=== PATIENT | male | born 1940 | race Caucasian/White ===

== ENCOUNTER 2017-01-31 05:44 | Inpatient (IN) | payer OTHER ==
[2017-01-20 10:31] LABS: WBC (NOT ORDERED) (RFLEX) 0 (0-5)
[2017-01-20 10:47] LABS: ASCORBIC ACID (UR NOT ORDER) NEG (NEG); BILIRUBIN, URINE NEGATIVE (NEG); KETONE, URINE NEGATIVE (NEG); LEUKOCYTE ESTERASE(NOT OR NEG (NEG)
[2017-01-20 10:51] LABS: BASOPHILS 0.8 %; BASOPHILS ABSOLUTE 0.07 10/3/uL (0.0-0.16); EOSINOPHILS 4.6 %; EOSINOPHILS ABSOLUTE 0.42 10/3/uL (0.0-0.53); HEMOGLOBIN 12.2 g/dL (13.6-17.8); IMMATURE GRANULOCYTES 0.2 %; IMMATURE GRANULOCYTES ABSOLUTE 0.02 10/3/uL (0.0-0.11); LYMPHOCYTES 25.1 %; LYMPHOCYTES ABSOLUTE 2.31 10/3/uL (0.67-4.30); MEAN CORPUS HGB CONC 32.4 g/dL (32.0-36.0); MEAN CORPUSCULAR HEMOGLOB 29.8 pg (26.0-34.0); MEAN PLATELET VOLUME 9.2 fL (9.2-13.0); MONOCYTES 5.3 %; MONOCYTES ABSOLUTE 0.49 10/3/uL (0.21-1.20); NEUTROPHILS ABSOLUTE 5.88 10/3/uL (2.02-8.40); RBC DISTRIBUTION WIDTH 13.7 % (12.0-16.0); WHITE BLOOD CELLS 9.2 10/3/uL (4.5-10.5)
[2017-01-20 10:55] LABS: HEMATOCRIT 37.6 % (40.0-51.0); MANUAL DIFF NO %; MEAN CORPUSCULAR VOLUME 91.7 fL (80-100); PLATELET COUNT 231 10/3/uL (150-400)
[2017-01-20 10:57] LABS: INTERNATIONAL NORMAL RATI 1.2 UNITS (-); PROTIME (NOT ORD) 14.9 SEC (12.0-14.5)
[2017-01-20 11:08] LABS: ALBUMIN 3.2 G/DL (3.5-5.0); CALCIUM, SERUM 8.7 MG/DL (8.5-10.4); CHLORIDE, SERUM 103 MMOL/L (96-112); CO2 (CARBON DIOXIDE) 32 MMOL/L (24-34); CREATININE 1.03 MG/DL (0.70-1.30); GFR AFRICAN AMERICAN 81 ML/MIN (>=60); GFR NON AFRICAN AMERICAN 70 ML/MIN (>=60); GLUCOSE, SERUM 91 MG/DL (60-99); POTASSIUM, SERUM 3.8 MMOL/L (3.5-5.3); SGOT(AST) 23 U/L (5-40); SGPT(ALT) 26 U/L (5-65); SODIUM, SERUM 142 MMOL/L (135-148); TOTAL PROTEIN 7.6 G/DL (6.0-8.5)
[2017-01-20 11:09] LABS: A/G RATIO 0.7 (0.7-1.9); ALKALINE PHOSPHATASE 112 U/L (45-117); BUN (BLOOD UREA NITROGEN) 15 MG/DL (6-23); GLOBULIN 4.4 G/DL (2.5-4.1)
--- NOTE | ~2017-01-31 | DS ---
Discharge Summary [facility] [address] [place]. [address] NAME: DEMOND RODRIGEZ : 40 STATUS : DIS IN PAT#: [id number] AGE: 77 ADM/REG DATE : 01/31/17 MR#: [id number] REPORT SERV DATE: 02/19/17 DICTATED BY: FER ROTHMAN DATE: 02/18/17 REPORT STATUS : Draft TRANSCRIBED BY: HERO DATE: 02/18/17 Data Collection from hospitalization DISCHARGE DIAGNOSES: 1. Entrapped left lung. 2. Chronic left pleural effusion. 3. Coronary artery disease status post coronary artery bypass grafting. 4. Chronic obstructive pulmonary disease. 5. Hyperlipidemia. 6. Hypertension. CONSULTATIONS: Natalie Peters M.D. PROCEDURES: 1. Left VATS with decortication of the lung-complete, 01/31/2017. 2. Fiberoptic bronchoscopy, bronchoscopy with bronchoalveolar lavage, and airway inspection, 02/07/2017. 3. CT scan of the chest with contrast, 02/05/2017. PATHOLOGY: Lung, left pleural peel-benign fluoro with marked reactive changes with old hemorrhage and focal chronic inflammation. Lung, left lower lobe BAL for cytology (thin prep)-rare squamous cells with mild atypia favor reactive/metaplastic. Negative for atypical or malignant cells. DISCHARGE MEDICATIONS: 1. Vitamin C 1000 mg twice a day. 2. Aspirin 81 mg at bedtime. 3. Lipitor 40 mg at bedtime. 4. Lotensin 5 mg daily. 5. Tessalon 200 mg three times a day as needed. 6. Coreg 6.25 mg twice a day. 7. Zyrtec 10 mg every day at bedtime. 8. Klonopin 0.5 mg twice a day. 9. Lexapro 20 mg daily. 10.Breo Ellipta one puff via inhaler daily. 11.Hydrochlorothiazide 12.5 mg daily. 12.Levaquin 750 mg daily. 13.Singulair 10 mg at bedtime. 14.Percocet one tablet every 4 hours as needed. 15.K-Dur 20 mEq daily. 16.Deltasone 40 mg daily. CONDITION AT DISCHARGE: Stable. DISPOSITION: The patient was discharged home on a regular diet with activities as instructed. He would follow up with Pablito Mann on 04/07/2017. He would follow up with Dr. Shane Harrison on 03/14/2017. Discharge Summary [place] [address] [place]. [address] NAME: DEMOND RODRIGEZ : 40 STATUS : DIS IN PAT#: [id number] AGE: 77 ADM/REG DATE : 01/31/17 MR#: [id number] REPORT SERV DATE: 02/19/17 DICTATED BY: FER ROTHMAN DATE: 02/18/17 REPORT STATUS : Draft TRANSCRIBED BY: HERO DATE: 02/18/17 HOSPITAL COURSE: This is a 77-year-old man who had undergone an uncomplicated coronary artery bypass grafting in July 2016. 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 Unfortunately, he developed a pleural effusion that had been drained on several occasions by the outlying physicians. He returned to our office with recurrent pleural fluid collection. He has a remote history of tobacco use and has a history of COPD. Because of the complains of shortness of breath and recurrent effusion with chest CT scan demonstrating trapped lung it was felt that the patient should undergo decortication. Treatment options were discussed and it was elected to proceed with surgical intervention. He was admitted to the hospital at this time for further evaluation and treatment. Upon admission, he was taken to the operating room where he underwent the above-mentioned procedure. He tolerated this well. There were no complications. On postop day #1, he seemed to be in good spirits. He had a few squeaks in his lungs, chest tube was in place. White count was 10.6. On 02/02/2017, he was awake and alert. His incisions looked okay. He had no shortness of breath. Chest x-ray showed left base atelectasis. He had no pneumothorax. He did not sleep well that evening. He did have good analgesia after taking medication. Chest x-ray showed increased left base atelectasis. His left apical chest tube was removed. We encouraged him to ambulate. On the , he had not had a bowel movement in about a week. He also complained of some hemoptysis. On 02/05/2017, he said he felt a little short of breath. He continued to have mild hemoptysis. His incisions looked okay. He did have a bowel movement. He was seen by Dr. Natalie Peters. A CT scan of the chest with contrast had been performed. There was no obvious venothromboembolic disease. There was some pneumonic infiltrate in the left lower lobe, subcutaneous air, and another pocket of packing inflammatory disease associated with remaining loculated component in the left upper lobe. The patient said that his symptoms were stable and not worsening. He characterized them as minimal and well localized to the chest. It was felt that he would likely need to undergo a bronchoscopy for airway inspection and BAL. On the , the patient was taken to the operating room where he underwent the above-mentioned procedure by Dr. Sanjiv Cisneros. He tolerated this well. There were no complications. He had less coughing. The next day, he was feeling better. His hemoptysis had decreased. Antibiotics and steroids were continued. Discharge planning was performed. On 02/09/2017, he had minimal cough with production of dark blood-tinged sputum. Discharge instructions were given. Due to his improved and stable condition, he was discharged home with the above-stated instructions. Information collected by: Radha Chang I submit the above information as my discharge summary. ISHA/HERO Fer Rothman M.D. / [id number] Discharge Summary [address] [address] NAME: DEMOND RODRIGEZ : 40 STATUS : DIS IN PAT#: [id number] AGE: 77 ADM/REG DATE : 01/31/17 MR#: [id number] REPORT SERV DATE: 02/19/17 DICTATED BY: FER ROTHMAN DATE: 02/18/17 REPORT STATUS : Draft TRANSCRIBED BY: HERO DATE: 02/18/17 CC: Cory Houston M.D.
--- NOTE | ~2017-01-31 | OP ---
Record Of Operation [facility] [address] [place]. [address] NAME: DEMOND RODRIGEZ : 40 STATUS : ADM IN PAT#: [id number] AGE: 77 ADM/REG DATE : 01/31/17 MR#: [id number] REPORT SERV DATE: 01/31/17 DICTATED BY: FER ROTHMAN DATE: 01/31/17 REPORT STATUS : Draft TRANSCRIBED BY: MODHood DATE: 01/31/17 DATE OF PROCEDURE: 01/31/2017 PREOPERATIVE DIAGNOSES: 1. Entrapped left lung with recurrent left pleural effusion. 2. Status post coronary artery bypass grafting in July of the last year. 3. Hypertension. POSTOPERATIVE DIAGNOSES: 1. Entrapped left lung with recurrent left pleural effusion. 2. Status post coronary artery bypass grafting in July of the last . 3. Hypertension. PROCEDURE PERFORMED: Left VATS with decortication of the lung, complete. SURGEON: Fer Rothman M.D. WASHERY BOSS: Suellen Shea. ANESTHESIA: General. INDICATIONS: This is a 77-year-old gentleman, who underwent uncomplicated coronary artery bypass grafting in July of 2016. 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 Unfortunately, he developed a pleural effusion that had been drained on several occasions by the outlying physicians. He returned to our office with recurrent pleural fluid collections. He has remote history of tobacco use and has a history of COPD. Because of complaints of shortness of breath and recurrent effusion with chest CT scan demonstrating trapped lung, I felt the patient should undergo consideration for decortication. This was discussed with the patient and his , and after discussing the operation, its indications, and risks, they wished to proceed. FINDINGS AT OPERATION: 1. Left lower lobe was mostly entrapped. There was a peel over the surface of the left the upper lobe that was decorticated. There was also parietal peel that was decorticated as much as possible. 2. Some of the pleural fluid was sent for cultures. 3. The Betadine solution was used as a sclerosing agent because of the lack of talc. PATHOLOGIC SPECIMENS: Include cultures of the fluid. DESCRIPTION OF PROCEDURE: The patient was brought to the operating suite, where general anesthesia was induced, airway was secured with a dual-lumen endotracheal tube. Lines were secured by Anesthesia. The patient was rolled in a right lateral decubitus position, and the left chest was prepped with Hibiclens and ChloraPrep, and draped with Ioban sterile sheets. The left lung was deflated by Anesthesia. Record Of Operation [facility] [address] [place]. [address] NAME: DEMOND RODRIGEZ : 40 STATUS : ADM IN PAT#: [id number] AGE: 77 ADM/REG DATE : 01/31/17 MR#: [id number] REPORT SERV DATE: 01/31/17 DICTATED BY: FER ROTHMAN DATE: 01/31/17 REPORT STATUS : Draft TRANSCRIBED BY: MODHood DATE: 01/31/17 A single 3 to 4 cm VATS incision was made along the posterior axillary line and four intercostal spaces above the costal margin. This area was aspirated and did reveal serous fluid from the pleura. We then divided the subcutaneous tissue and chest wall musculature. We entered the left chest bluntly, and a protractor soft tissue retractor was placed. A second 1 to 2 cm incision was made along the anterior axillary line and one intercostal space below this previous incision. Through these two port sites examination and procedure were carried out. The fluid was drained from the left lung in total more than 500 mL of serous fluid. Some of this was sent for cultures. We then spent the next hour and a half to two hours decorticating the left lung, and the pleural surface. Once we were near completion of this, the lung was ventilated by Anesthesia, and had good filling of the thoracic cavity. It was noted that there were several rents or pneumonotomies made during the decortication, and these did have air leaks. Then, the lung was deflated, and the chest was irrigated copiously with sterile water and saline. Hemostasis was obtained. Once hemostasis was assured, a straight chest tube was placed through, most anterior thoracoscopic port site. A second anterior thoracoscopic port site was then made through a 1 to 2 cm incision placed two intercostal spaces above the latter chest tube site. A right angle chest tube was then placed and directed down toward the base of the diaphragm. Both chest tubes were secured in place. Then, the protractor soft tissue retractor was removed, and the largest of the VATS incision was closed in layers with absorbable suture, and skin was closed in subcuticular fashion. The patient tolerated the procedure well. There were no complications. Sponge and needle counts were correct. DISPOSITION: The patient was ventilated and extubated in the operating room, and taken to the recovery room in stable condition. BHARAT/HERO Fer Rothman M.D. / [id number] CC: Cory Houston M.D.
--- NOTE | ~2017-01-31 | CN ---
Consultation Report [place] [id number] [place]. [address] NAME: RYAN COULTER : 40 STATUS : ADM IN [facility]#: [id number] AGE: 77 ADM/REG DATE : 01/31/17 MR#: [id number] REPORT SERV DATE: 02/06/17 DICTATED BY: NATALIE CARY DATE: 02/05/17 REPORT STATUS : Draft TRANSCRIBED BY: MODHood DATE: 02/05/17 CONSULTATION DATE OF CONSULTATION: Dear Pablito Mann: Thank you for requesting my opinion regarding evaluation and management of Mr. Ryan Coulter's hemoptysis. Mr. Coulter is an extremely pleasant elderly gentleman with a significant past medical history of hypertension, hyperlipidemia, remote tobacco abuse, anxiety, depression, and coronary artery disease status post grafting, who presented for an outpatient elective VATS decortication on 01/31/2017 for entrapped left lung with recurrent left-sided pleural effusion. The patient's biopsy demonstrated benign pleura with marked reactive changes and old hemorrhage and focal chronic inflammation. The patient's postoperative course was going smoothly and both of his chest tubes were removed; however, in the past 24 hours, he has coughed up some scant teaspoon hemoptysis. The patient's CT scan has been performed at 3:20 p.m., still not read. There is no obvious venothromboembolic disease. There is some pneumonic infiltrate located in the left lower lobe, subcutaneous air, and another pocket of patchy inflammatory disease associated with remaining loculated component in the left upper lobe. The patient states that his symptoms are stable and not worsening and he characterizes them as minimal and well localized to the chest. REVIEW OF SYSTEMS: A detailed 14-point review of systems was completed. Pertinent positives and negatives are listed above. PAST MEDICAL HISTORY: 1. Hypertension. 2. Hyperlipidemia. 3. History of tobacco abuse. 4. History of nephrolithiasis. 5. Anxiety. 6. Depression. 7. Seasonal allergies. PAST SURGICAL HISTORY: 1. Cholecystectomy. 2. Cataract surgery. 3. Tonsillectomy. 4. Recent coronary artery bypass graft surgery. ALLERGIES: NO KNOWN DRUG ALLERGIES. HOME MEDICATIONS: Reviewed and located in the paper chart. Consultation Report [place] [id number] [facility] [place]. [address] NAME: RYAN COULTER : 40 STATUS : ADM IN PAT#: [id number] AGE: 77 ADM/REG DATE : 01/31/17 MR#: [id number] REPORT SERV DATE: 02/06/17 DICTATED BY: NATALIE CARY DATE: 02/05/17 REPORT STATUS : Draft TRANSCRIBED BY: HERO DATE: 02/05/17 FAMILY HISTORY: [place] and coronary artery bypass graft surgery. SOCIAL HISTORY: The patient is . Retired. His is by his bedside. He is a former smoker smoking of one pack per day for 15 years and quit 35 years ago. PHYSICAL EXAMINATION: VITAL SIGNS: Afebrile, T current 97.7, pulse of 78, respiratory rate of 16, room air 98%, blood pressure 103/59. GENERAL: No acute distress. Able to communicate in full paragraphs at a time. HEENT: Normocephalic and atraumatic. Pupils are equal, round, and reactive to light and accommodation. Posterior oropharynx is clear. NECK: No JVD. No LAD. Trachea midline. CARDIOVASCULAR: Regular rate and rhythm. S1 and S2 present. LUNGS: Clear to auscultation in the right lung. Coarse breath sounds in the left base. ABDOMEN: Nontender, nondistended, soft. Positive bowel sounds. EXTREMITIES: No clubbing, cyanosis, or edema. SKIN: No new rashes, lesions, or ulcers. Surgical scars are noted. NEUROLOGIC: 5/5 strength in upper and lower extremities. Cranial nerves 2 through 12 intact. Gait not tested. DTRs not performed. LABORATORY DATA: White count of 6, hemoglobin of 9.9, platelet count of 194. No current chemistries are available, but a creatinine of 0.72 is noted. IMAGING: Chest x-ray on 02/05/2017 demonstrates persistent left basilar consolidation with second chest tube removal. CT scan of the chest is pending. My personal interpretation is listed above. No obvious large central PE. Pneumonic infiltrate is noted in the left lobe with cavitary component and pleural loculation noted in the left upper lobe and associated inflammatory infiltrate. ASSESSMENT AND PLAN: Mr. Ryan Coulter is a pleasant 77-year-old gentleman with significant past medical history of hypertension, hyperlipidemia, and prior tobacco abuse, who had a nonmalignant left-sided pleural effusion with entrapped lung, who underwent decortication. His postoperative course has been complicated with scant teaspoon hemoptysis. I will review the CT scan with Radiology. We will likely proceed with bronchoscopy in the next one to two days for airway inspection, bronchoscopy, and BAL. Summary of my recommendations are listed below: 1. Await final results from the CT scan. 2. Further recommendations pending CT scan. 3. Likely bronchoscopy to follow. Thank you for allowing me to participate in Mr. Coulter's care. The patient is aware that bronchoscopy is associated with potential life-threatening risks including lung collapse, respiratory failure, and even . Consultation Report [facility] [address] [place]. [address] NAME: RYAN COULTER : 40 STATUS : ADM IN [facility]#: [id number] AGE: 77 ADM/REG DATE : 01/31/17 MR#: [id number] REPORT SERV DATE: 02/06/17 DICTATED BY: NATALIE CARY DATE: 02/05/17 REPORT STATUS : Draft TRANSCRIBED BY: HERO DATE: 02/05/17 [place]/HERO Natalie Cary M.D. / [id number] CC: Cory Houston M.D.
--- NOTE | ~2017-01-31 | OP ---
Record Of Operation [facility] [address] [address] NAME: DEMOND RODRIGEZ : 40 STATUS : ADM IN [facility]#: [id number] AGE: 77 ADM/REG DATE : 01/31/17 MR#: [id number] REPORT SERV DATE: 02/07/17 DICTATED BY: OMAR CISNEROS DATE: 02/07/17 REPORT STATUS : Draft TRANSCRIBED BY: MODL DATE: 02/07/17 DATE OF PROCEDURE: 02/07/2017 PROCEDURE PERFORMED: Fiberoptic bronchoscopy, bronchoscopy with bronchoalveolar lavage and airway inspection. INDICATION: For hemoptysis. DESCRIPTION OF PROCEDURE: After risks and benefits were explained, informed consent was obtained. The patient received conscious sedation under care of Anesthesiology. The bronchoscope was inserted via the left nostril and advanced beyond the vocal cords without difficulty. There were thin serosanguineous secretions throughout which became more copious at the lower respiratory tract. Most of it seemed to be coming from the left lower lobe. After cleaning the secretions in the main airway, we were able to visualize the main first and second order of bronchi and indeed the serosanguineous bleeding appeared to be coming from the left lower lobe. The mucosa was otherwise clear with some mild hyperemia and prominent vessels but with no endobronchial lesions. Following airway inspection of both bronchial trees, we performed bronchoalveolar lavage in the left lower lobe with good return of pink serosanguineous fluid. 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 The bronchoalveolar lavage was sent for cultures and cytology. The patient will continue to be followed by Pulmonary. ANGEL/HERO Omar Cisneros M.D. / [id number] CC: Coyr Houston M.D.
[~2017-01-31 05:44] MED LIST: ASAB PO; BREO ELLIPTA INH; COD LIVE1; COREG6 PO; HYDROCHLOROT12.5 MG PO; KDUR20 PO; KLONO5 PO; LEXAPRO20 PO; LIPITOR40 PO; LOP25 PO; LOTE5 PO; LOTENSIN HCT1 TA1 PO; NORCO1 TA1 PO; PRAVACHOL40 MG PO; SINGULAIR1 PO; VITC500 PO; ZYRTEC ALLGY10 MG PO
[2017-02-01 05:49] LABS: BASOPHILS 0 %; EOSINOPHILS 0 %; HEMOGLOBIN 10.1 g/dL (13.6-17.8); IMMATURE GRANULOCYTES 0.2 %; IMMATURE GRANULOCYTES ABSOLUTE 0.02 10/3/uL (0.0-0.11); LYMPHOCYTES 9.4 %; LYMPHOCYTES ABSOLUTE 0.99 10/3/uL (0.67-4.30); MEAN CORPUS HGB CONC 32.5 g/dL (32.0-36.0); MEAN CORPUSCULAR HEMOGLOB 29.4 pg (26.0-34.0); MEAN CORPUSCULAR VOLUME 90.7 fL (80-100); MEAN PLATELET VOLUME 9.4 fL (9.2-13.0); MONOCYTES 4.9 %; MONOCYTES ABSOLUTE 0.52 10/3/uL (0.21-1.20); NEUTROPHILS 85.5 %; NEUTROPHILS ABSOLUTE 9.02 10/3/uL (2.02-8.40); PLATELET COUNT 180 10/3/uL (150-400); RBC DISTRIBUTION WIDTH 13.8 % (12.0-16.0); RED CELL COUNT 3.43 10/6/uL (4.7-6.1); WHITE BLOOD CELLS 10.6 10/3/uL (4.5-10.5)
[2017-02-01 05:50] LABS: HEMATOCRIT 31.1 % (40.0-51.0); MANUAL DIFF NO %
[2017-02-01 05:54] LABS: BUN (BLOOD UREA NITROGEN) 14 MG/DL (6-23); CALCIUM, SERUM 8.7 MG/DL (8.5-10.4); CHLORIDE, SERUM 105 MMOL/L (96-112); CO2 (CARBON DIOXIDE) 27 MMOL/L (24-34); GFR AFRICAN AMERICAN 100 ML/MIN (>=60); GFR NON AFRICAN AMERICAN 86 ML/MIN (>=60); GLUCOSE, SERUM 135 MG/DL (60-99); POTASSIUM, SERUM 4.5 MMOL/L (3.5-5.3); SODIUM, SERUM 138 MMOL/L (135-148)
[2017-02-05 08:52] LABS: BASOPHILS 0.3 %; BASOPHILS ABSOLUTE 0.02 10/3/uL (0.0-0.16); EOSINOPHILS 8.9 %; EOSINOPHILS ABSOLUTE 0.56 10/3/uL (0.0-0.53); HEMATOCRIT 31.2 % (40.0-51.0); HEMOGLOBIN 9.9 g/dL (13.6-17.8); IMMATURE GRANULOCYTES 0.6 %; IMMATURE GRANULOCYTES ABSOLUTE 0.04 10/3/uL (0.0-0.11); LYMPHOCYTES 18.6 %; LYMPHOCYTES ABSOLUTE 1.17 10/3/uL (0.67-4.30); MEAN CORPUS HGB CONC 31.7 g/dL (32.0-36.0); MEAN CORPUSCULAR HEMOGLOB 29.5 pg (26.0-34.0); MEAN CORPUSCULAR VOLUME 92.9 fL (80-100); MEAN PLATELET VOLUME 9.2 fL (9.2-13.0); MONOCYTES 9.9 %; MONOCYTES ABSOLUTE 0.62 10/3/uL (0.21-1.20); NEUTROPHILS 61.7 %; NEUTROPHILS ABSOLUTE 3.88 10/3/uL (2.02-8.40); PLATELET COUNT 194 10/3/uL (150-400); RBC DISTRIBUTION WIDTH 14.3 % (12.0-16.0); RED CELL COUNT 3.36 10/6/uL (4.7-6.1)
[2017-02-05 08:53] LABS: MANUAL DIFF NO %; WHITE BLOOD CELLS 6.3 10/3/uL (4.5-10.5)
[2017-02-05 11:53] LABS: CREATININE 0.72 MG/DL (0.70-1.30)
[2017-02-06 06:09] LABS: HEMATOCRIT 28.8 % (40.0-51.0); HEMOGLOBIN 9.4 g/dL (13.6-17.8); MANUAL DIFF YES %; MEAN CORPUS HGB CONC 32.6 g/dL (32.0-36.0); MEAN CORPUSCULAR HEMOGLOB 29.9 pg (26.0-34.0); MEAN CORPUSCULAR VOLUME 91.7 fL (80-100); MEAN PLATELET VOLUME 9.2 fL (9.2-13.0); PLATELET COUNT 202 10/3/uL (150-400); RBC DISTRIBUTION WIDTH 14.2 % (12.0-16.0); RED CELL COUNT 3.14 10/6/uL (4.7-6.1); WHITE BLOOD CELLS 6.3 10/3/uL (4.5-10.5)
[2017-02-06 06:33] LABS: BASOPHILS 2 %; BASOPHILS ABSOLUTE (CALC) 0.13 10/3/uL (0.0-0.16); EOSINOPHILS 7 %; EOSINOPHILS ABSOLUTE (CALC) 0.44 10/3/uL (0.0-0.53); IMMATURE GRANS ABSOLUTE (CALC) 0.06 10/3/uL (0.0-0.11); LYMPHOCYTES 22 %; LYMPHOCYTES ABSOLUTE (CALC) 1.39 10/3/uL (0.67-4.30); METAMYELOCYTES 1 %; MONOCYTES 2 %; MONOCYTES ABSOLUTE (CALC) 0.13 10/3/uL (0.21-1.20); NEUTROPHILS ABSOLUTE (CALC) 4.16 10/3/uL (2.02-8.40); PLATELET ESTIMATE ADQ (ADEQUATE); SEGMENTED NEUTROPHIL (0) 66 %; TOTAL NUCLEATED CELLS 100
[2017-02-06 06:34] LABS: OVALOCYTES 1+ (3-10/OIF) (0-2/OIF); POLYCHROMASIA 1+ (2-5/OIF) (0-1/OIF)
[2017-02-06 06:35] LABS: TEARDROP SHAPED RBCS FEW (3-10/OIF)
[2017-02-07 05:19] LABS: HEMOGLOBIN 9.4 g/dL (13.6-17.8); PLATELET COUNT 217 10/3/uL (150-400)
[2017-02-07 05:28] LABS: INTERNATIONAL NORMAL RATI 1.1 UNITS (-); PARTIAL THROMBO TIME 33.2 SEC (22.5-37.2)
[2017-02-07 05:29] LABS: BUN (BLOOD UREA NITROGEN) 12 MG/DL (6-23); CALCIUM, SERUM 8.4 MG/DL (8.5-10.4); CHLORIDE, SERUM 106 MMOL/L (96-112); CO2 (CARBON DIOXIDE) 30 MMOL/L (24-34); CREATININE 0.63 MG/DL (0.70-1.30); GFR AFRICAN AMERICAN 110 ML/MIN (>=60); GFR NON AFRICAN AMERICAN 95 ML/MIN (>=60); GLUCOSE, SERUM 89 MG/DL (60-99); POTASSIUM, SERUM 3.9 MMOL/L (3.5-5.3); SODIUM, SERUM 142 MMOL/L (135-148)
[2017-02-07 18:50] LABS: BD FL LYMPH (NOT ORD) 27 %; BD FL SOURCE (NOT ORD) BAL-LLL; BF BASO (NOT OF) 1 %; BF LARGE MONONUCLEAR 45 %; BF TOTAL CELL CT (NOT ORD 221 /MM3; BODY FLUID EOS (NOT ORD) 5 %; BODY FLUID RBC (NOT ORD) 12000 /MM3; BODY FLUID SEG (NOT ORD) 22 %
[2017-02-09] MEDS ORDERED: VITC500 PO (11:11)
[2017-02-09] MEDS ORDERED: TESSALON200 MG PO (11:31)
[2017-02-09] MEDS ORDERED: P20 PO (11:32)
[2017-02-09] MEDS ORDERED: LEVAQUIN750 MG PO (11:32)
[2017-02-09] MEDS ORDERED: PCET PO (11:33)
== END 2017-02-09 13:06 | disposition home or self-care (01) | DRG 163 ==
LOC: SDC/OF 05:44 → PACU 11:02 → 5NO 12:24
PROVIDERS: Internal Medicine; Internal Medicine Pulmonary Disease; Nurse Practitioner Family; Thoracic Surgery (Cardiothoracic Vascular Surgery)
PROC: 3E0L3GC Introduction of Other Therapeutic Substance into Pleural Cavity, Percutaneous Approach (ICD-10-PCS; 2017-01-31)
PROC: 0BDP4ZZ Extraction of Left Pleura, Percutaneous Endoscopic Approach (ICD-10-PCS; principal; 2017-01-31 07:45)
PROC: 0B9J8ZX Drainage of Left Lower Lung Lobe, Via Natural or Artificial Opening Endoscopic, Diagnostic (ICD-10-PCS; 2017-02-07)
DX: J90 Pleural effusion, not elsewhere classified (principal); J18.9 Pneumonia, unspecified organism; J95.812 Postprocedural air leak; R04.2 Hemoptysis; J98.11 Atelectasis; I10 Essential (primary) hypertension; E78.5 Hyperlipidemia, unspecified; F41.9 Anxiety disorder, unspecified; F32.9 Major depressive disorder, single episode, unspecified; J20.9 Acute bronchitis, unspecified; Z87.891 Personal history of nicotine dependence; Z87.442 Personal history of urinary calculi; Z90.49 Acquired absence of other specified parts of digestive tract; Z98.890 Other specified postprocedural states; Z82.49 Family history of ischemic heart disease and other diseases of the circulatory system; Z95.1 Presence of aortocoronary bypass graft
CPT/HCPCS: 36415; 71010; 71020; 71260; 80048; 80053; 81001; 82565; 82962; 83036; 85014; 85018; 85025; 85049; 85610; 85730; 86850; 86900; 86901; 86920; 87015; 87070; 87075; 87102; 87116; 87205; 87641; 88112; 88305; 89051; 93005; 94640; A9270-GY; J0690; J2250; J2370; J2405; J2710; J2765; J2795; J2920; J3010; P9045; Q9967